=== PATIENT | female | born 1960 | race Caucasian/White ===

== ENCOUNTER 2021-03-18 18:59 | Emergency (ER) | payer OTHER ==
[~2021-03-18] VITALS: Ht 160 cm; Wt 104.3 kg
[2021-03-18 19:24] VITALS: BP 144/100
--- NOTE | 2021-03-18 19:32 | NUR ---
xray at bedside.
--- NOTE | 2021-03-18 19:39 | NUR ---
C/C RT ANKLE PAIN X 1 WEEK. PT STATES SHE FEELS HER RT ANKLE IS MORE SWOLLEN THAN HER LEFT. MILD REDNESS NOTED TO RT INNER ANKLE. NO WARMTH NOTED UPON TOUCH. NO NOTED PITTING EDEMA. DENIES INJURY. MED HX: HTN ALLERGIES: NKA
--- NOTE | 2021-03-18 19:42 | NUR ---
PT PLACED IN GOWN FOR ULTRASOUND.
--- NOTE | 2021-03-18 20:15 | NUR ---
ULTRASOUND AT BEDSIDE.
--- NOTE | 2021-03-18 21:39 | NUR ---
Patient appears to be resting comfortably in bed. Vital Signs within normal limits. Respirations even and unlabored. WILL CONTINUE TO MONITOR.
[2021-03-18] MEDS ORDERED: CEPH-588 PO (21:58)
[2021-03-18] MEDS ORDERED: NAPR-54 PO (22:04)
[2021-03-18 22:10] VITALS: BP 146/65
== END 2021-03-18 22:10 | disposition home or self-care (01) ==
LOC: MED 18:59
DX: L03.115 Cellulitis of right lower limb (principal); M17.11 Unilateral primary osteoarthritis, right knee
CPT/HCPCS: 73562; 73610; 93971; 99284; Q0092

== ENCOUNTER 2022-02-16 20:43 | Emergency (ER) | payer OTHER ==
[~2022-02-16] VITALS: Ht 160 cm; Wt 102.6 kg
[~2022-02-16 20:43] MED LIST: CEPH-588 PO; NAPR-54 PO
[2022-02-16 20:44] VITALS: BP 160/70
--- NOTE | 2022-02-16 20:47 | NUR ---
TO LOBBY A/W BED AMBULATORY
--- NOTE | 2022-02-16 20:50 | NUR ---
SEEN AND EXAMINED BY SOSA
[2022-02-16] MEDS ORDERED: methylPREDNISolone SS 125 MG/2 ML VIAL IM ONE (20:55)
[2022-02-16] MEDS ORDERED: FAMOTIDINE 20 MG TAB PO ONE (20:55)
[2022-02-16] MEDS ORDERED: diphenhydrAMINE 50 MG/ML VIAL IM ONE (20:55)
[2022-02-16] MEDS ORDERED: DIPH25TA53 PO (20:57)
[2022-02-16] MEDS ORDERED: PRED20TA5 PO (20:57)
[2022-02-16] MEDS ORDERED: FAMO-92 PO (20:58)
--- NOTE | 2022-02-16 21:03 | NUR ---
MEDICATED PER [facility] ORDER , TOLERATED WELL.
[2022-02-16 21:30] VITALS: BP 130/78
--- NOTE | 2022-02-16 21:30 | NUR ---
Patient discharged with v/s stable. Written and verbal after care instructions given and explained. Patient alert, oriented and verbalized understanding of instructions. Ambulatory with steady gait. All questions addressed prior to discharge. ID band removed. Patient advised to follow up with PMD. Rx of BENADRYL, DELTASONE, PEPCID given. Patient educated on indication of medication including possible reaction and side effects. Opportunity to ask questions provided and answered.
== END 2022-02-16 21:30 | disposition home or self-care (01) ==
LOC: MED 20:43
DX: L50.9 Urticaria, unspecified (principal); I10 Essential (primary) hypertension
CPT/HCPCS: 96372; 99284; J1200; J2930

== ENCOUNTER 2022-08-20 20:46 | Emergency (ER) | payer OTHER ==
[~2022-08-20] VITALS: Ht 154.9 cm; Wt 102.1 kg
[~2022-08-20 20:46] MED LIST changes: +DIPH25TA53 PO; +FAMO-92 PO; +PRED20TA5 PO
--- NOTE | 2022-08-20 21:54 | NUR ---
pt ambulated to bed #4
--- NOTE | 2022-08-20 22:07 | NUR ---
Patient resting in bed, A/Ox4, chest rise and fall symmetrical, no c/o pain or s/s of distress.
[2022-08-20] MEDS ORDERED: IBUP-2213 PO (22:49)
[2022-08-20] MEDS ORDERED: ACET-11169 PO (22:49)
[2022-08-20] MEDS ORDERED: EMLAC TP (22:49)
[2022-08-20 22:56] VITALS: BP 122/84
== END 2022-08-20 22:56 | disposition home or self-care (01) ==
LOC: MED 20:46
DX: M17.0 Bilateral primary osteoarthritis of knee (principal); I10 Essential (primary) hypertension; Z90.49 Acquired absence of other specified parts of digestive tract; Z79.899 Other long term (current) drug therapy; Z79.1 Long term (current) use of non-steroidal anti-inflammatories (NSAID); Z79.2 Long term (current) use of antibiotics
CPT/HCPCS: 99283

== ENCOUNTER 2024-01-05 11:28 | Emergency (ER) | payer OTHER ==
[~2024-01-05] VITALS: Ht 157.5 cm; Wt 97.2 kg
[~2024-01-05 11:28] MED LIST changes: +ACET-11169 PO; +EMLAC TP; +IBUP-2213 PO; +NAPR-337 PO; -NAPR-54 PO
[2024-01-05 11:44] VITALS: BP 165/75; PULSE 72; RESP 17; TEMP 97.8; O2SAT 100
[2024-01-05 11:58] VITALS: BP 155/70; PULSE 72; RESP 17; TEMP 97.8
[2024-01-05 12:00] VITALS: O2SAT 100
[2024-01-05] MEDS ORDERED: ACET-8905 PO (13:41)
[2024-01-05] MEDS: KETOROLAC 60 MG/2 ML VIAL IM ONE (14:06)
== END 2024-01-05 14:18 | disposition home or self-care (01) ==
LOC: MED 11:28
DX: S13.4XXA Sprain of ligaments of cervical spine, initial encounter (principal); I10 Essential (primary) hypertension; M19.90 Unspecified osteoarthritis, unspecified site; Z90.49 Acquired absence of other specified parts of digestive tract; Z79.899 Other long term (current) drug therapy; X58.XXXA Exposure to other specified factors, initial encounter; Y92.89 Other specified places as the place of occurrence of the external cause; Y93.89 Activity, other specified; Y99.8 Other external cause status
CPT/HCPCS: 81002; 96372; 99283; J1885